=== PATIENT | male | born 1990 | race Caucasian/White ===

== ENCOUNTER 2017-01-31 14:26 | Emergency (ER) | payer BC ==
[~2017-01-31] VITALS: Ht 180.3 cm; Wt 80.3 kg
[2017-01-31] MEDS ORDERED: KETOROLAC 30 MG/1 ML ONE (15:16)
[2017-01-31] MEDS ORDERED: KETOROLAC 30 MG/1 ML IM ONE (15:30)
[2017-01-31 15:43] LABS: BLOOD UREA NITROGEN 22 mg/dL (7-18)
[2017-01-31 15:47] LABS: ASPARTATE AMINO TRANSFERASE 32 U/L (15-37)
[2017-01-31 16:33] VITALS: BP 125/80
== END 2017-01-31 16:34 | disposition home or self-care (01) ==
LOC: ED 16:20
DX: K60.2 Anal fissure, unspecified (principal); K59.00 Constipation, unspecified; B34.9 Viral infection, unspecified
CPT/HCPCS: 36415; 80053; 85025; 96372; 99284; J1885